=== PATIENT | female | born 1990 | race African-American/Black ===

== ENCOUNTER 2018-04-27 22:22 | Emergency (ER) | payer MEDICAID ==
[~2018-04-27] VITALS: Ht 162.6 cm; Wt 101.2 kg
[~2018-04-27 22:22] MED LIST: LIDOCAINE VISC100 M1 SWISH&SPIT; OSELB75 PO; PHENERGAN 25 MG25 M1 PO; PREDNISONE 20 M20 MG PO; PRENATAL; PROAIR HFA8.5 GM INH; TYLENOL325 MG PO; ZOFRAN ODT4 MG PO
[2018-04-27 22:32] VITALS: BP 133/77
[2018-04-27] MEDS ORDERED: DIFLUCAN200 MG PO (22:37)
[2018-04-27] MEDS ORDERED: ZPAK PO ×2 (23:03→23:04)
[2018-04-27] MEDS ORDERED: MEDROLDOSEPACK PO ×2 (23:03→23:04)
[2018-04-27] MEDS ORDERED: ONDANSETRON HCL4 M2 PO ×2 (23:03→23:04)
== END 2018-04-27 23:13 | disposition home or self-care (01) ==
LOC: M.ERS 22:22
DX: J45.901 Unspecified asthma with (acute) exacerbation (principal); R11.0 Nausea; I10 Essential (primary) hypertension; Z98.890 Other specified postprocedural states

== ENCOUNTER 2018-12-12 18:41 | Emergency (ER) | payer OTHER, MEDICAID ==
[~2018-12-12] VITALS: Ht 165.1 cm; Wt 92.5 kg
[~2018-12-12 18:41] MED LIST changes: +DIFLUCAN200 MG PO; +MEDROLDOSEPACK PO; +ONDANSETRON HCL4 M2 PO; +ZPAK PO
[2018-12-12 19:24] LABS: URINE BILIRUBIN NEGATIVE (Negative); URINE BLOOD NEGATIVE (Negative); URINE CLARITY CLEAR; URINE COLOR YELLOW; URINE GLUCOSE-RANDOM NEGATIVE (Negative); URINE KETONES NEGATIVE (Negative); URINE LEUKOCYTES-REFLEX NEGATIVE (Negative); URINE NITRITE-REFLEX NEGATIVE (Negative); URINE PROTEIN TRACE (Negative); URINE SPECIFIC GRAVITY >= 1.030 (1.005-1.030); URINE UROBILINOGEN 0.2 E.U./dl (0.2-1.0)
[2018-12-12 20:02] VITALS: BP 119/54
== END 2018-12-12 20:03 | disposition home or self-care (01) ==
LOC: M.ERS 18:41
PROVIDERS: Nurse Practitioner Family
DX: R05 Cough (principal); Z32.02 Encounter for pregnancy test, result negative; I10 Essential (primary) hypertension; J45.909 Unspecified asthma, uncomplicated; Z98.890 Other specified postprocedural states

== ENCOUNTER 2019-04-06 16:00 | Emergency (ER) | payer OTHER ==
[~2019-04-06] VITALS: Ht 162.6 cm; Wt 92.5 kg
[2019-04-06] MEDS ORDERED: MEDROLDOSEPACK PO (16:25)
[2019-04-06] MEDS ORDERED: AZITHROMYCIN500 MG PO (16:25)
[2019-04-06] MEDS ORDERED: ALBUTEROL2.5 MG/31 INH (16:25)
[2019-04-06 17:07] VITALS: BP 113/71
== END 2019-04-06 17:00 | disposition home or self-care (01) ==
LOC: M.ERS 16:00
DX: J45.901 Unspecified asthma with (acute) exacerbation (principal); I10 Essential (primary) hypertension; Z98.890 Other specified postprocedural states

== ENCOUNTER 2019-08-04 11:13 | Emergency (ER) | payer OTHER ==
[~2019-08-04] VITALS: Ht 162.6 cm; Wt 102.1 kg
[~2019-08-04 11:13] MED LIST changes: +ALBUTEROL2.5 MG/31 INH; +AZITHROMYCIN500 MG PO
[2019-08-04 11:47] LABS: INFLUENZA A ANTIGEN Negative (Negative); INFLUENZA B ANTIGEN Negative (Negative)
[2019-08-04] MEDS ORDERED: PREDNISONE 10 M10 MG PO (12:00)
[2019-08-04] MEDS ORDERED: AUGMENTIN 875-1 EACH PO (12:00)
[2019-08-04 12:04] VITALS: BP 136/70
== END 2019-08-04 12:10 | disposition home or self-care (01) ==
LOC: M.ERS 11:13
PROVIDERS: Physician Assistant
DX: H66.92 Otitis media, unspecified, left ear (principal); J32.9 Chronic sinusitis, unspecified; J45.909 Unspecified asthma, uncomplicated; I10 Essential (primary) hypertension; Z98.890 Other specified postprocedural states

== ENCOUNTER 2020-05-21 14:46 | Emergency (ER) | payer OTHER ==
[~2020-05-21] VITALS: Ht 162.6 cm; Wt 94.8 kg
[~2020-05-21 14:46] MED LIST changes: +AUGMENTIN 875-1 EACH PO; +PREDNISONE 10 M10 MG PO
[2020-05-21] MEDS ORDERED: DOXYCYCLINE 10100 MG PO (17:15)
[2020-05-21] MEDS ORDERED: IBUPROFEN 800800 M1 PO (17:38)
[2020-05-21] MEDS ORDERED: NORCO 5-325 TA1 EAC2 PO (17:38)
[2020-05-21 17:48] VITALS: BP 130/72
== END 2020-05-21 17:49 | disposition home or self-care (01) ==
LOC: M.ERS 14:46
DX: B07.0 Plantar wart (principal); J45.909 Unspecified asthma, uncomplicated; I10 Essential (primary) hypertension; Z98.890 Other specified postprocedural states